=== PATIENT | male | born 1960 | race Caucasian/White ===

== ENCOUNTER 2018-10-28 10:05 | Emergency (ER) | payer OTHER ==
[~2018-10-28] VITALS: Ht 175.3 cm; Wt 88.5 kg
[2018-10-28] MEDS ORDERED: GLIP10TA11 PO (10:21)
[2018-10-28] MEDS ORDERED: METF-442 PO (10:21)
--- NOTE | 2018-10-28 10:40 | NUR ---
at bedside to examine patient.
[2018-10-28] MEDS: IBUPROFEN 800 MG TABLET PO ONE (10:52)
[2018-10-28] MEDS ORDERED: IBUPROFEN 800 MG TABLET ONE (10:54)
--- NOTE | 2018-10-28 10:58 | NUR ---
pt. taken down for head CT.
--- NOTE | 2018-10-28 11:13 | NUR ---
Patient back from CT.
--- NOTE | 2018-10-28 11:38 | NUR ---
at bedside discussing CT results with patient.
[2018-10-28 11:42] VITALS: BP 122/64
--- NOTE | 2018-10-28 11:45 | NUR ---
dcd instructions and prescriptions given to pt. who verbalized understanding. left room AAOx4. vitals stable no c/of pain, steady gait.
== END 2018-10-28 11:48 | disposition home or self-care (01) ==
LOC: ER 10:05
DX: S06.0X0A Concussion without loss of consciousness, initial encounter (principal); E11.9 Type 2 diabetes mellitus without complications; Z79.899 Other long term (current) drug therapy; W20.8XXA Other cause of strike by thrown, projected or falling object, initial encounter; Y93.89 Activity, other specified; Y92.89 Other specified places as the place of occurrence of the external cause; Y99.8 Other external cause status
CPT/HCPCS: 70450; 72125; A4663

== ENCOUNTER 2021-07-03 21:42 | Emergency (ER) | payer OTHER ==
[~2021-07-03] VITALS: Ht 172.7 cm; Wt 77.1 kg
[~2021-07-03 21:42] MED LIST: GLIP10TA11 PO; METF-442 PO
--- NOTE | 2021-07-03 21:51 | NUR ---
DR. MEADE AT BEDSIDE, MSE IN PROGRESS.
[2021-07-03] MEDS ORDERED: IV NORMAL SALINE 1000 ML BAG IV ONE (22:00)
[2021-07-03] MEDS ORDERED: PROCHLORPERAZINE EDISYLATE 10 MG/2 ML VIAL IV ONE (22:00)
[2021-07-03] MEDS ORDERED: CLONIDINE HCL 0.1 MG TABLET PO ONE (22:00)
[2021-07-03] MEDS ORDERED: PROCHLORPERAZINE EDISYLATE 10 MG/2 ML VIAL ONE (22:05)
[2021-07-03] MEDS ORDERED: CLONIDINE HCL 0.1 MG TABLET ONE (22:06)
--- NOTE | 2021-07-03 22:13 | NUR ---
XRAY AT BEDSIDE.
[2021-07-03 22:56] LABS: BILIRUBIN,DIRECT 0.2 mg/dL (0.0-0.2); BILIRUBIN,TOTAL 0.7 mg/dL (0.2-1.0); CREATININE 0.8 mg/dL (0.6-1.3); POTASSIUM 4.1 mmol/L (3.5-5.1); TOTAL PROTEIN, SERUM 7.6 g/dL (6.4-8.2)
[2021-07-03] MEDS ORDERED: MAGNESIUM CITRATE 296 ML BOTTLE PO ONE (23:15)
[2021-07-03] MEDS ORDERED: BISA10SU61 RC (23:47)
[2021-07-03] MEDS ORDERED: BISA-79 PO (23:47)
[2021-07-03 23:59] LABS: HEMATOCRIT 42.1 % (36.7-47.1); MEAN CORPUSCULAR VOLUME 85.5 fL (73.0-96.2); PLATELET COUNT (AUTO) 206 K/uL (152-348)
--- NOTE | 2021-07-04 00:23 | NUR ---
Patient discharged to home in stable condition. Written and verbal after care instructions given. Patient verbalizes understanding of instructions. Stressed follow up or return to ER for worsening s/s. Steady gait, no changes in LOC. Denies ORTEGA/dizzyness. No n/v/d. Denies any pain/discomfort upon discharge. Accompanied by significant other.
[2021-07-04 00:24] VITALS: BP 146/82
== END 2021-07-04 00:24 | disposition home or self-care (01) ==
LOC: ER 21:47
DX: R11.2 Nausea with vomiting, unspecified (principal); K59.00 Constipation, unspecified; I11.9 Hypertensive heart disease without heart failure; E11.9 Type 2 diabetes mellitus without complications; Z79.84 Long term (current) use of oral hypoglycemic drugs; F17.210 Nicotine dependence, cigarettes, uncomplicated
CPT/HCPCS: 74021; 80048; 80076; 83690; 83735; 84484; 85025; 93005; 96361; 96374; 99284; J0780; A4663; J7030